=== PATIENT | male | born 1965 | race Caucasian/White ===

== ENCOUNTER 2017-11-12 19:38 | Inpatient (IN) | payer OTHER ==
[2017-11-12] VITALS (7 sets, daily range): BP systolic 178; BP diastolic 81; PULSE 48–53; RESP 26; TEMP 97.7; O2SAT 99–100
[~2017-11-12] VITALS: Ht 170.2 cm; Wt 97.2 kg
[2017-11-12] MEDS ORDERED: PROPOFOL 1000 MG/100 ML INJ 100 ML ONE (19:46)
[2017-11-12] MEDS ORDERED: ceFAZolin 2 GM PREMIX 50 ML ONE (19:46)
[2017-11-12] MEDS ORDERED: DIPHTH/TETANUS/ACEL PERTUSSIS (BOOSTER) 0.5 ML VIAL/PFS IM ONE (19:47)
[2017-11-12 20:07] LABS: AUTOMATED NEUTROPHIL # 4.3 TH/MM3 (1.8-7.7); BASOPHIL # 0.1 TH/MM3 (0-0.2); BASOPHIL % 0.8 % (0.0-2.0); EOSINOPHIL # 0.3 TH/MM3 (0-0.4); EOSINOPHIL % 2.6 % (0.0-4.0); HEMATOCRIT 44.3 % (39.0-51.0); HEMOGLOBIN 15.3 GM/DL (13.0-17.0); LYMPH % 43.7 % (9.0-44.0); LYMPHOCYTE # 4.3 TH/MM3 (1.0-4.8); MEAN CELL VOLUME 91.6 FL (80.0-100.0); MEAN CORPUSCULAR HEMOGLOBIN 31.7 PG (27.0-34.0); MEAN CORPUSCULAR HGB CONC 34.6 % (32.0-36.0); MEAN PLATELET VOLUME 7.3 FL (7.0-11.0); MONO % 9.2 % (0.0-8.0); MONOCYTE # 0.9 TH/MM3 (0-0.9); NEUT % 43.7 % (16.0-70.0); PLATELET COUNT 242 TH/MM3 (150-450); RED BLOOD COUNT 4.84 MIL/MM3 (4.50-5.90); RED CELL DISTRIBUTION WIDTH 12.9 % (11.6-17.2); WHITE BLOOD COUNT 9.8 TH/MM3 (4.0-11.0)
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
[2017-11-12 20:15] LABS: PROTHROMBIN TIME - PATIENT 10.5 SEC (9.8-11.6)
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
[2017-11-12] MEDS ORDERED: MISCELLANEOUS NURSING INFORMATION XX SCH (20:30)
[2017-11-12] MEDS ORDERED: SENNOSIDES 8.6 MG TAB PO PRN (20:30)
[2017-11-12] MEDS ORDERED: MAGNESIUM HYDROXIDE SUSP 30 ML CUP PO PRN (20:30)
[2017-11-12] MEDS ORDERED: LACTULOSE SYRUP 20 GM/30 ML CUP PO PRN (20:30)
[2017-11-12] MEDS ORDERED: CHLORHEXIDINE GLUCONATE 2 % 1 PACK (2 CLOTHS) TOP PRN (20:30)
[2017-11-12] MEDS ORDERED: PROPOFOL 1000 MG/100 ML INJ 100 ML IV PRN (20:30)
[2017-11-12] MEDS ORDERED: fentaNYL DRIP 250 ML IV PRN (20:30)
[2017-11-12] MEDS ORDERED: BISACODYL 10 MG SUPP RECTAL PRN (20:30)
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
[2017-11-12] MEDS ORDERED: IOHEXOL 350 MG/ML 10 ML VIAL (for RAD DIAG) IVCONTRAST ONE (20:46)
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
[2017-11-12] MEDS ORDERED: POTASSIUM CHLOR 40 MEQ PREMIX 100 ML IV PRN (21:00)
[2017-11-12] MEDS ORDERED: POTASSIUM PHOSPHATE INJ 30 MMOL in SODIUM CHLOR 0.9% 250 ML INJ 250 ML IV PRN (21:00)
[2017-11-12] MEDS ORDERED: POTASSIUM CHLOR 20 MEQ PREMIX 100 ML IV PRN ×2 (21:00)
[2017-11-12] MEDS ORDERED: MAGNESIUM SULFATE INJ 4 GM in SODIUM CHLORIDE 0.9% INJ 92 ML IV PRN (21:00)
[2017-11-12] MEDS ORDERED: POTASSIUM PHOSPHATE MONOBASIC 500 MG TAB PO PRN (21:00)
[2017-11-12] MEDS ORDERED: MAGNESIUM SULFATE INJ 2 GM in SODIUM CHLORIDE 0.9% INJ 96 ML IV PRN (21:00)
[2017-11-12] MEDS ORDERED: POTASSIUM PHOSPHATE MONOBASIC 500 MG TAB PO/TUBE PRN (21:00)
[2017-11-12] MEDS ORDERED: MAGNESIUM OXIDE 400 MG TAB PO PRN (21:00)
[2017-11-12] MEDS ORDERED: levETIRAcetam INJ 500 MG in SODIUM CHLORIDE 0.9% INJ 100 ML IV SCH (21:00)
[2017-11-12] MEDS ORDERED: SODIUM PHOSPHATE INJ 30 MMOL in SODIUM CHLOR 0.9% 250 ML INJ 240 ML IV PRN (21:00)
[2017-11-12] MEDS ORDERED: ETOMIDATE 40 MG/20 ML VIAL ONE (21:05)
[2017-11-12] MEDS ORDERED: ROCURONIUM INJ 50 MG/5 ML VIAL ONE (21:08)
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
[2017-11-12] MEDS ORDERED: MANNITOL INJ 500 ML IV ONE (21:30)
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
[2017-11-12 21:46] LABS: MAGNESIUM 2.5 MG/DL (1.5-2.5); PHOSPHORUS 2.9 MG/DL (2.5-4.9)
[2017-11-12] MEDS: PROPOFOL 1000 MG/100 ML IV PRN (21:59)
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
[2017-11-12] MEDS: fentaNYL DRIP 250 ML IV PRN (22:00)
[2017-11-12] MEDS: SODIUM CHLOR 0.9% 1000 ML INJ 1,000 ML IV SCH (22:00)
--- NOTE | 2017-11-12 22:01 | RADRPT ---
EXAM DATE/TIME: 11/12/2017 21:41 [facility] COMPARISON: CT BRAIN W/O CONTRAST, November 12, 2017, 20:03. CHEST SINGLE AP, November 12, 2017, 19:52. HAND LEFT COM PLETE ([id number]), November 12, 2017, 21:04. INDICATIONS : Post central line placement. MEDICAL HISTORY : Unobtainable. SURGICAL HISTORY : Unobtainable. ENCOUNTER: Subsequent ACUITY: 1 day PAIN SCORE: Non-responsive. LOCATION: Bilateral chest FINDINGS: The endotracheal tube and right subclavian central line are in good position. There is no pneumothora x identified. There is an area of consolidation at the left lung base. The lungs are otherwise clear. The visualized bony structures are grossly intact. CONCLUSION: 1. No pneumothorax identified following central line placement. 2. Endotracheal tube in satisfactory position. 3. Small area of consolidation at the left lung base. Radames Lopez MD on November 12, 2017 at 21:57 Board Certified Radiologist. This report was verified electronically.
[2017-11-12] MEDS: levETIRAcetam INJ 500 MG in SODIUM CHLORIDE 0.9% INJ 100 ML IV SCH (23:04)
[2017-11-12] MEDS: FAMOTIDINE 20 MG TAB PO SCH (23:11)
[2017-11-12] MEDS: DOCUSATE SODIUM 50 MG/SENNA 8.6 MG TAB PO SCH (23:11)
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
[2017-11-12] MEDS: 3% SALINE INJ 500 ML IV SCH (23:33)
--- NOTE | 2017-11-12 23:39 | PD.PROCEDR ---
Procedure Note Procedure Centerline placement A time-out was completed verifying correct patient, procedure, site, positioning , and special equipment if applicable. The patient was placed in a dependent position appropriate for central line placement based on the vein to be cannulated. The patients right shoulder was prepped and draped in sterile fashion. 1% Lidocaine was used to anesthetize the surrounding skin area. A triple lumen 9-Bolivian Cordis catheter was introduced into the the right subclavian vein using the Seldinger technique. The catheter was threaded smoothly over the guide wire and appropriate blood return was obtained. Each lumen of the catheter was evacuated of air and flushed with sterile saline. The catheter was then sutured in place to the skin and a sterile dressing applied. Perfusion to the extremity distal to the point of catheter insertion was checked and found to be adequate. Estimated Blood Loss: 1ml The patient tolerated the procedure well and there were no complications. Keny Polanco MD Nov 12, 2017 11:39 pm
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
[2017-11-13] VITALS (16 sets, daily range): BP systolic 94–124; BP diastolic 52–64; PULSE 54–68; RESP 24; TEMP 98.5–101.1; O2SAT 100
[2017-11-13 00:20] LABS: BILIRUBIN, URINE NEG (NEG); BLOOD, URINE SMALL (NEG); GLUCOSE,URINE NEG (NEG); KETONE, URINE TRACE mg/dL (NEG); NITRITE,URINE NEG (NEG); PH, URINE 7.5 (5.0-8.5); URINE COLOR LIGHT-YELLOW (YELLW/STRAW); URINE LEUKOCYTE ESTERASE NEG (NEG)
[2017-11-13] MEDS: PROPOFOL 1000 MG/100 ML IV PRN ×5 (00:44→23:16)
[2017-11-13] MEDS: SODIUM CHLOR 0.9% 1000 ML INJ 1,000 ML IV SCH ×4 (00:44→21:25)
[2017-11-13] MEDS: CHLORHEXIDINE GLUCONATE 2 % 1 PACK (2 CLOTHS) TOP SCH (04:00)
[2017-11-13 05:27] LABS: BASOPHIL % 0.2 % (0.0-2.0); EOSINOPHIL % 0.1 % (0.0-4.0); HEMATOCRIT 37.3 % (39.0-51.0); HEMOGLOBIN 12.8 GM/DL (13.0-17.0); LYMPH % 10.6 % (9.0-44.0); LYMPHOCYTE # 1.1 TH/MM3 (1.0-4.8); MEAN CELL VOLUME 93.1 FL (80.0-100.0); MEAN CORPUSCULAR HEMOGLOBIN 32.1 PG (27.0-34.0); MEAN CORPUSCULAR HGB CONC 34.5 % (32.0-36.0); MEAN PLATELET VOLUME 7.1 FL (7.0-11.0); MONO % 8.3 % (0.0-8.0); MONOCYTE # 0.8 TH/MM3 (0-0.9); NEUT % 80.8 % (16.0-70.0); PLATELET COUNT 186 TH/MM3 (150-450); RED CELL DISTRIBUTION WIDTH 13.1 % (11.6-17.2); WHITE BLOOD COUNT 9.9 TH/MM3 (4.0-11.0)
[2017-11-13 05:34] LABS: INTERNATIONAL NORMALIZED RATIO 1.1 RATIO; PROTHROMBIN TIME - PATIENT 10.9 SEC (9.8-11.6)
[2017-11-13 05:43] LABS: BICARBONATE 28.3 MEQ/L (21.0-32.0); CREATININE 1.08 MG/DL (0.60-1.30); MAGNESIUM 2.3 MG/DL (1.5-2.5)
[2017-11-13] MEDS: CHLORHEXIDINE 0.12% (ORAL KIT) 15 ML CUP MT SCH ×2 (09:38→21:21)
[2017-11-13] MEDS: levETIRAcetam INJ 500 MG in SODIUM CHLORIDE 0.9% INJ 100 ML IV SCH ×2 (09:38→21:18)
[2017-11-13] MEDS: FAMOTIDINE 20 MG TAB PO SCH ×2 (09:39→21:16)
[2017-11-13] MEDS: DOCUSATE SODIUM 50 MG/SENNA 8.6 MG TAB PO SCH ×2 (09:39→21:16)
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
[2017-11-13] MEDS ORDERED: NOREPINEPHRINE 4 MG/D5W 250 ML IV PRN (14:15)
[2017-11-13] MEDS: 3% SALINE INJ 500 ML IV SCH (14:51)
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
[2017-11-14] VITALS (20 sets, daily range): BP systolic 107–133; BP diastolic 50–73; PULSE 50–82; RESP 20–24; TEMP 98.4–100.4; O2SAT 98–100
[2017-11-14] MEDS: PROPOFOL 1000 MG/100 ML IV PRN ×6 (02:42→20:18)
[2017-11-14] MEDS: CHLORHEXIDINE GLUCONATE 2 % 1 PACK (2 CLOTHS) TOP SCH (04:00)
[2017-11-14] MEDS: SODIUM CHLOR 0.9% 1000 ML INJ 1,000 ML IV SCH ×3 (04:26→18:18)
--- NOTE | 2017-11-14 04:52 | RADRPT ---
EXAM DATE/TIME: 11/14/2017 02:56 [facility] COMPARISON: CHEST SINGLE AP, November 12, 2017, 21:41. INDICATIONS : Short of breath. MEDICAL HISTORY : None. SURGICAL HISTORY : None. ENCOUNTER: Subsequent ACUITY: 2 days PAIN SCORE: 0/10 LOCATION: Bilateral chest FINDINGS: Patient rotation towards the right. ET tube in good position. Gastric and subclavian catheter is st able. Patchy infiltrates in the karen-and infrahilar regions bilaterally stable in appearance. Both hemidiaphragms are well delineated. CONCLUSION: Lines and tubes in good position. Stable bilateral central infiltrates. Adal Rodríguez MD on November 14, 2017 at 4:50 Board Certified Radiologist. This report was verified electronically.
--- NOTE | 2017-11-14 05:13 | RADRPT ---
EXAM DATE/TIME: 11/14/2017 04:56 [facility] COMPARISON: CT BRAIN W/O CONTRAST, November 12, 2017, 20:03. INDICATIONS : Follow up trauma. RADIATION DOSE: 63.90 CTDIvol (mGy) MEDICAL HISTORY : Non-responsive. SURGICAL HISTORY : Non-responsive. ENCOUNTER: Subsequent ACUITY: 1 day PAIN SCALE: Non-responsive LOCATION: cranial TECHNIQUE: Multiple contiguous axial images were obtained of the head. Using automated exposure control and adj ustment of the mA and/or kV according to patient size, radiation dose was kept as low as reasonably a chievable to obtain optimal diagnostic quality images. DICOM format image data is available electro nically for review and comparison. FINDINGS: The examination is abnormal demonstrating an enlarging extra-axial hematoma in the left middle crania l fossa having a crescentic inner margin and measuring 2.7 cm in width (hematoma measured 9 mm on the prior CT). The length is also increased, now measuring 6.5 cm (previously measured 1.7 cm) Interva l development of midline shift measuring 5 mm to the right. There is no intraventricular blood layer ing in the occipital horns. Subarachnoid hemorrhage is seen in the high convexity parietal regions b ilaterally. Cranial monitoring probe in the left right convexity frontal region. Interval resolution of the subarachnoid hemorrhage about the brainstem and cerebellum. The karen-pont ine cisterns no contain CSF density and no blood products within the 4th ventricle. Stable appearance to the left maxillary, left zygoma and right maxillary fractures with persistent co mplete opacification of bilateral ethmoid and left maxillary sinus and air-fluid level in the right m axillary sinus. CONCLUSION: 1. Significant increase in the size of the extra-axial hematoma in the left middle cranial fossa, now measuring 2.7 x 6.5 cm with interval development of 5 mm midline shift towards the right, bilateral- convexity subarachnoid hemorrhage, and bilateral intraventricular blood. 2. Resolved hemorrhage about the brainstem and cerebellum and in the 4th ventricle. Adal Rodríguez MD on November 14, 2017 at 5:02 Board Certified Radiologist. This report was verified electronically.
[2017-11-14 06:13] LABS: AUTOMATED NEUTROPHIL # 8.9 TH/MM3 (1.8-7.7); BASOPHIL % 0.3 % (0.0-2.0); EOSINOPHIL % 0.2 % (0.0-4.0); HEMATOCRIT 29.4 % (39.0-51.0); HEMOGLOBIN 10.3 GM/DL (13.0-17.0); LYMPH % 11.6 % (9.0-44.0); LYMPHOCYTE # 1.3 TH/MM3 (1.0-4.8); MEAN CELL VOLUME 92.1 FL (80.0-100.0); MEAN CORPUSCULAR HEMOGLOBIN 32.4 PG (27.0-34.0); MEAN CORPUSCULAR HGB CONC 35.1 % (32.0-36.0); MEAN PLATELET VOLUME 7.4 FL (7.0-11.0); MONO % 6.9 % (0.0-8.0); MONOCYTE # 0.8 TH/MM3 (0-0.9); PLATELET COUNT 145 TH/MM3 (150-450); RED BLOOD COUNT 3.19 MIL/MM3 (4.50-5.90)
[2017-11-14 06:41] LABS: ALBUMIN 2.7 GM/DL (3.4-5.0); BICARBONATE 24.1 MEQ/L (21.0-32.0); CALCIUM 7.4 MG/DL (8.5-10.1); CALCIUM-PROTEIN CORRECTED 8.3 MG/DL (8.5-10.1); CREATININE 0.85 MG/DL (0.60-1.30); TOTAL BILIRUBIN ADULT 0.4 MG/DL (0.2-1.0); TOTAL PROTEIN 5.4 GM/DL (6.4-8.2)
[2017-11-14] MEDS: 3% SALINE INJ 500 ML IV SCH (07:08)
[2017-11-14] MEDS: fentaNYL DRIP 250 ML IV PRN (10:23)
[2017-11-14] MEDS: levETIRAcetam INJ 500 MG in SODIUM CHLORIDE 0.9% INJ 100 ML IV SCH ×2 (10:23→20:17)
[2017-11-14] MEDS: DOCUSATE SODIUM 50 MG/SENNA 8.6 MG TAB PO SCH ×2 (10:24→20:45)
[2017-11-14] MEDS: CHLORHEXIDINE 0.12% (ORAL KIT) 15 ML CUP MT SCH ×2 (10:26→20:18)
[2017-11-14] MEDS: POTASSIUM CHLORIDE 20 MEQ PWD PACKET PO PRN (10:26)
[2017-11-14] MEDS: FAMOTIDINE 20 MG TAB PO SCH ×2 (10:26→20:17)
[2017-11-14] MEDS: POTASSIUM CHLOR 40 MEQ PREMIX 100 ML IV PRN (10:26)
[2017-11-14] MEDS ORDERED: SODIUM CHLOR 0.9% 1000 ML INJ 1,000 ML IV ONE (10:30)
[2017-11-14] MEDS ORDERED: ROCURONIUM INJ 50 MG/5 ML SYRINGE IV PUSH ONE (12:00)
[2017-11-14] MEDS ORDERED: PROPOFOL 200 MG/20 ML AMP IV ONE (12:00)
[2017-11-14] MEDS ORDERED: GELFOAM SIZE 100 ONE (13:24)
[2017-11-14] MEDS ORDERED: LIDOCAINE 1%/EPINEPHrine 1:100,000 SOLN 30 ML VIAL ONE (13:24)
[2017-11-14] MEDS ORDERED: GENTAMICIN SULFATE 80 MG/2 ML VIAL ONE (13:24)
[2017-11-14] MEDS ORDERED: THROMBIN (TOPICAL) 5,000 UNIT VIAL ONE (13:24)
[2017-11-14] MEDS ORDERED: ceFAZolin 2 GM PREMIX 50 ML ONE (13:24)
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
[2017-11-14] MEDS ORDERED: FUROSEMIDE 20 MG/2 ML VIAL ONE (13:55)
[2017-11-14] MEDS ORDERED: MANNITOL INJ 100 ML ONE (13:57)
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
--- NOTE | 2017-11-14 21:14 | EKG ---
Date Performed: 11/14/2017 Time Performed: 12:52:30 PTAGE: 52 years EKG: Sinus bradycardia. Prolonged QT interval Inferior and anterior T wave changes are nonspecif ic Borderline ECG NO PREVIOUS TRACING DOCTOR: Annette Landaverde Interpretating Date/Time 11/14/2017 21:13:26
[2017-11-15] VITALS (17 sets, daily range): BP systolic 96–122; BP diastolic 50–80; PULSE 43–54; RESP 18–20; TEMP 97.5–100; O2SAT 98–100
[2017-11-15] MEDS: PROPOFOL 1000 MG/100 ML IV PRN ×5 (01:15→19:50)
[2017-11-15] MEDS: 3% SALINE INJ 500 ML IV SCH ×2 (02:15→17:43)
[2017-11-15] MEDS: SODIUM CHLOR 0.9% 1000 ML INJ 1,000 ML IV SCH ×2 (02:16→08:02)
[2017-11-15] MEDS: CHLORHEXIDINE GLUCONATE 2 % 1 PACK (2 CLOTHS) TOP SCH (04:00)
[2017-11-15 04:35] LABS: BASOPHIL % 0.6 % (0.0-2.0); EOSINOPHIL # 0.2 TH/MM3 (0-0.4); EOSINOPHIL % 2.9 % (0.0-4.0); HEMATOCRIT 26.9 % (39.0-51.0); HEMOGLOBIN 9.4 GM/DL (13.0-17.0); LYMPH % 24.7 % (9.0-44.0); LYMPHOCYTE # 1.9 TH/MM3 (1.0-4.8); MEAN CORPUSCULAR HEMOGLOBIN 32.4 PG (27.0-34.0); MEAN CORPUSCULAR HGB CONC 34.9 % (32.0-36.0); MEAN PLATELET VOLUME 7.4 FL (7.0-11.0); MONO % 6.8 % (0.0-8.0); MONOCYTE # 0.5 TH/MM3 (0-0.9); PLATELET COUNT 117 TH/MM3 (150-450); RED BLOOD COUNT 2.89 MIL/MM3 (4.50-5.90); RED CELL DISTRIBUTION WIDTH 13.4 % (11.6-17.2); WHITE BLOOD COUNT 7.7 TH/MM3 (4.0-11.0)
[2017-11-15 05:08] LABS: ALBUMIN 2.4 GM/DL (3.4-5.0); BICARBONATE 20.6 MEQ/L (21.0-32.0); CALCIUM 7.4 MG/DL (8.5-10.1); CALCIUM-PROTEIN CORRECTED 8.5 MG/DL (8.5-10.1); CREATININE 0.7 MG/DL (0.60-1.30); TOTAL BILIRUBIN ADULT 0.3 MG/DL (0.2-1.0); TOTAL PROTEIN 5.1 GM/DL (6.4-8.2)
[2017-11-15] MEDS: fentaNYL DRIP 250 ML IV PRN (05:54)
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
[2017-11-15] MEDS: CHLORHEXIDINE 0.12% (ORAL KIT) 15 ML CUP MT SCH ×2 (08:00→19:51)
[2017-11-15] MEDS: FAMOTIDINE 20 MG TAB PO SCH ×2 (08:02→19:51)
[2017-11-15] MEDS: levETIRAcetam INJ 500 MG in SODIUM CHLORIDE 0.9% INJ 100 ML IV SCH ×2 (08:02→19:51)
[2017-11-15] MEDS: DOCUSATE SODIUM 50 MG/SENNA 8.6 MG TAB PO SCH ×2 (08:02→19:51)
[2017-11-15] MEDS: POTASSIUM CHLORIDE 20 MEQ PWD PACKET PO PRN (08:04)
[2017-11-15] MEDS ORDERED: FUROSEMIDE 40 MG/4 ML VIAL IV PUSH ONE (10:30)
[2017-11-15] MEDS ORDERED: POTASSIUM BICARBONATE 25 MEQ EFFERVESCENT TAB PO ONE (10:30)
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
--- NOTE | 2017-11-15 14:43 | EKG ---
Date Performed: 11/15/2017 Time Performed: 10:44:22 PTAGE: 52 years EKG: Sinus bradycardia. Inferior and ant/septal T wave changes are nonspecific Borderline ECG NO PREVIOUS TRACING DOCTOR: Bennie Sigala Interpretating Date/Time 11/15/2017 14:43:01
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
[2017-11-15] MEDS: NOREPINEPHRINE INJ 4 MG in SODIUM CHLOR 0.9% 250 ML INJ 250 ML IV PRN ×2 (17:13→19:50)
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
[2017-11-15] MEDS: LACTULOSE SYRUP 20 GM/30 ML CUP PO SCH (23:35)
[2017-11-16] VITALS (18 sets, daily range): BP systolic 93–131; BP diastolic 47–88; PULSE 18–97; RESP 18; TEMP 99.3–100; O2SAT 95–99
[2017-11-16] MEDS: fentaNYL DRIP 250 ML IV PRN ×2 (00:30→08:41)
[2017-11-16] MEDS: PROPOFOL 1000 MG/100 ML IV PRN ×4 (00:30→20:15)
[2017-11-16] MEDS: CHLORHEXIDINE GLUCONATE 2 % 1 PACK (2 CLOTHS) TOP SCH (02:52)
[2017-11-16] MEDS: NOREPINEPHRINE INJ 4 MG in SODIUM CHLOR 0.9% 250 ML INJ 250 ML IV PRN (05:12)
--- NOTE | 2017-11-16 05:55 | RADRPT ---
EXAM DATE/TIME: 11/16/2017 04:33 [place] COMPARISON: CHEST SINGLE AP, November 15, 2017, 5:15. INDICATIONS : Shortness of breath. MEDICAL HISTORY : Non-responsive. SURGICAL HISTORY : Non-responsive. ENCOUNTER: Subsequent ACUITY: 4 - 6 days PAIN SCORE: Non-responsive. LOCATION: Bilateral chest FINDINGS: ET tube tip 1.4 cm above the taco. There is persistent consolidation in the medial left lower lung with air bronchograms. Patchy infiltrates in the right infrahilar region are also stable. Both hem idiaphragms are well delineated. CONCLUSION: 1. ET tube tip is 1.4 cm above the taco and needs to be withdrawn 1 cm. 2. Bilateral lower lung subsegmental consolidation. Adal Rodríguez MD on November 16, 2017 at 5:52 Board Certified Radiologist. This report was verified electronically.
[2017-11-16 06:04] LABS: AUTOMATED NEUTROPHIL # 5.7 TH/MM3 (1.8-7.7); BASOPHIL % 0.4 % (0.0-2.0); EOSINOPHIL # 0.4 TH/MM3 (0-0.4); EOSINOPHIL % 4.8 % (0.0-4.0); HEMATOCRIT 27.7 % (39.0-51.0); LYMPH % 20.8 % (9.0-44.0); LYMPHOCYTE # 1.7 TH/MM3 (1.0-4.8); MEAN CELL VOLUME 91.6 FL (80.0-100.0); MEAN PLATELET VOLUME 7.5 FL (7.0-11.0); MONO % 6.4 % (0.0-8.0); MONOCYTE # 0.5 TH/MM3 (0-0.9); NEUT % 67.6 % (16.0-70.0); PLATELET COUNT 169 TH/MM3 (150-450); RED BLOOD COUNT 3.02 MIL/MM3 (4.50-5.90); RED CELL DISTRIBUTION WIDTH 13.2 % (11.6-17.2); WHITE BLOOD COUNT 8.4 TH/MM3 (4.0-11.0)
[2017-11-16 06:19] LABS: ALBUMIN 2.4 GM/DL (3.4-5.0); AST (GOT) 17 U/L (15-37); BICARBONATE 23.8 MEQ/L (21.0-32.0); BLOOD UREA NITROGEN 9 MG/DL (7-18); CALCIUM 7.9 MG/DL (8.5-10.1); CHLORIDE 118 MEQ/L (98-107); CREATININE 0.76 MG/DL (0.60-1.30); GLOMERULAR FILTRATION RATE 107 ML/MIN (>89); GLUCOSE,RANDOM 140 MG/DL (74-106); SODIUM (NA) 149 MEQ/L (136-145)
[2017-11-16 06:20] LABS: ALT (GPT) 26 U/L (12-78)
[2017-11-16 06:22] LABS: ALKALINE PHOSPHATASE 51 U/L (45-117); TOTAL BILIRUBIN ADULT 0.3 MG/DL (0.2-1.0); TOTAL PROTEIN 5.6 GM/DL (6.4-8.2)
[2017-11-16] MEDS: CHLORHEXIDINE 0.12% (ORAL KIT) 15 ML CUP MT SCH ×2 (08:00→20:16)
[2017-11-16] MEDS ORDERED: RESP: ALBUTEROL 2.5 MG/IPRATROPIUM 0.5 MG NEB (PRN) NEB (08:00)
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
[2017-11-16] MEDS: levETIRAcetam INJ 500 MG in SODIUM CHLORIDE 0.9% INJ 100 ML IV SCH ×2 (08:37→20:15)
[2017-11-16] MEDS: LACTULOSE SYRUP 20 GM/30 ML CUP PO SCH (08:37)
[2017-11-16] MEDS: MAGNESIUM HYDROXIDE SUSP 30 ML CUP PO SCH ×2 (08:37→20:15)
[2017-11-16] MEDS: 3% SALINE INJ 500 ML IV SCH ×2 (08:38→11:15)
[2017-11-16] MEDS: DOCUSATE SODIUM 50 MG/SENNA 8.6 MG TAB PO SCH ×2 (08:39→20:16)
[2017-11-16] MEDS: FAMOTIDINE 20 MG TAB PO SCH ×2 (08:39→20:15)
[2017-11-16] MEDS: POTASSIUM CHLOR 40 MEQ PREMIX 100 ML IV PRN ×2 (09:09→11:43)
[2017-11-16] MEDS: RESP: ALBUTEROL 2.5 MG/IPRATROPIUM 0.5 MG NEB (SCH) NEB ×3 (09:23→20:35)
--- NOTE | 2017-11-16 10:04 | HHI.NSPN ---
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 and breathing treatments with nebulizers. Daily PT and OT Renal. Continue to monitor closely urine output, BUN and creatinine Endocrine. Continue to Monitor serial Acu checks and SSI as needed in detail ID continue to monitor for signs of infection Continue Protonix for stress ulcer prophylaxis Continue Bob hose and SCD's for DVT prophylaxis Further recommendations will be provided depending on the patient's clinical evaluation and follow up studies. The exam, history, and the medical decision-making described in the above note were completed with the assistance of the mid-level provider. I reviewed and agree with the findings presented. I attest that I had a [id number] encounter with the patient on the same day, and personally performed and documented my assessment and findings in the medical record. (Boyd Gill MD) Noe Macdonald Nov 16, 2017 10:04 Boyd Gill MD Nov 19, 2017 14:32
[2017-11-16] MEDS: ARTIFICIAL TEARS OPTH OINT 3.5 APPLIC/3.5 GM TUBO EACH EYE SCH ×2 (12:48→20:16)
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
[2017-11-17] VITALS (19 sets, daily range): BP systolic 101–143; BP diastolic 8–68; PULSE 63–94; RESP 11–18; TEMP 99.7–100.4; O2SAT 93–100
[2017-11-17] MEDS: fentaNYL DRIP 250 ML IV PRN ×2 (02:23→18:28)
[2017-11-17] MEDS: RESP: ALBUTEROL 2.5 MG/IPRATROPIUM 0.5 MG NEB (SCH) NEB ×4 (03:19→21:17)
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
[2017-11-17] MEDS: 3% SALINE INJ 500 ML IV SCH (03:27)
[2017-11-17] MEDS: CHLORHEXIDINE GLUCONATE 2 % 1 PACK (2 CLOTHS) TOP SCH (04:00)
[2017-11-17] MEDS: PROPOFOL 1000 MG/100 ML IV PRN ×2 (05:17→13:51)
[2017-11-17 07:02] LABS: AUTOMATED NEUTROPHIL # 5.7 TH/MM3 (1.8-7.7); BASOPHIL % 0.1 % (0.0-2.0); EOSINOPHIL # 0.5 TH/MM3 (0-0.4); EOSINOPHIL % 6.4 % (0.0-4.0); HEMOGLOBIN 10.4 GM/DL (13.0-17.0); LYMPHOCYTE # 1.2 TH/MM3 (1.0-4.8); MEAN CELL VOLUME 91.3 FL (80.0-100.0); MEAN CORPUSCULAR HEMOGLOBIN 31.8 PG (27.0-34.0); MEAN CORPUSCULAR HGB CONC 34.8 % (32.0-36.0); MEAN PLATELET VOLUME 7.2 FL (7.0-11.0); MONO % 8.2 % (0.0-8.0); MONOCYTE # 0.7 TH/MM3 (0-0.9); NEUT % 70.3 % (16.0-70.0); PLATELET COUNT 225 TH/MM3 (150-450); RED BLOOD COUNT 3.29 MIL/MM3 (4.50-5.90); WHITE BLOOD COUNT 8.1 TH/MM3 (4.0-11.0)
[2017-11-17 07:12] LABS: ALBUMIN 2.4 GM/DL (3.4-5.0); AST (GOT) 11 U/L (15-37); BICARBONATE 24.1 MEQ/L (21.0-32.0); BLOOD UREA NITROGEN 10 MG/DL (7-18); CALCIUM 8.2 MG/DL (8.5-10.1); CHLORIDE 115 MEQ/L (98-107); CREATININE 0.77 MG/DL (0.60-1.30); GLOMERULAR FILTRATION RATE 105 ML/MIN (>89); GLUCOSE,RANDOM 127 MG/DL (74-106); SODIUM (NA) 147 MEQ/L (136-145)
[2017-11-17 07:13] LABS: ALT (GPT) 26 U/L (12-78)
[2017-11-17 07:15] LABS: ALKALINE PHOSPHATASE 60 U/L (45-117); TOTAL BILIRUBIN ADULT 0.4 MG/DL (0.2-1.0); TOTAL PROTEIN 5.9 GM/DL (6.4-8.2)
[2017-11-17] MEDS: CHLORHEXIDINE 0.12% (ORAL KIT) 15 ML CUP MT SCH ×2 (08:00→20:39)
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
[2017-11-17] MEDS: levETIRAcetam INJ 500 MG in SODIUM CHLORIDE 0.9% INJ 100 ML IV SCH ×2 (09:00→20:39)
[2017-11-17] MEDS: ARTIFICIAL TEARS OPTH OINT 3.5 APPLIC/3.5 GM TUBO EACH EYE SCH ×2 (09:00→20:39)
[2017-11-17] MEDS: MAGNESIUM HYDROXIDE SUSP 30 ML CUP PO SCH ×2 (09:39→20:39)
[2017-11-17] MEDS: LACTULOSE SYRUP 20 GM/30 ML CUP PO SCH (09:39)
[2017-11-17] MEDS: FAMOTIDINE 20 MG TAB PO SCH ×2 (09:39→20:38)
[2017-11-17] MEDS: DOCUSATE SODIUM 50 MG/SENNA 8.6 MG TAB PO SCH ×2 (09:42→20:39)
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
[2017-11-17] MEDS ORDERED: LIDOCAINE 1%/EPINEPHrine 1:100,000 SOLN 30 ML VIAL INFIL ONE (10:15)
[2017-11-17] MEDS: oxyCODONE HCL ORAL CONC 5 MG/0.25 ML SYRINGE PO SCH ×4 (11:57→23:57)
[2017-11-17] MEDS: SODIUM CHLORIDE 1 GRAM TAB PO SCH ×2 (11:57→20:38)
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
[2017-11-17] MEDS: ACETAMINOPHEN 650 MG/20.3 ML UDC PO PRN (23:57)
[2017-11-18] VITALS (20 sets, daily range): BP systolic 110–132; BP diastolic 54–70; PULSE 58–96; RESP 14–17; TEMP 100.2–101.3; O2SAT 96–100
[2017-11-18] MEDS: oxyCODONE HCL ORAL CONC 5 MG/0.25 ML SYRINGE PO SCH ×6 (03:00→23:00)
[2017-11-18] MEDS: CHLORHEXIDINE GLUCONATE 2 % 1 PACK (2 CLOTHS) TOP SCH (04:00)
[2017-11-18] MEDS: RESP: ALBUTEROL 2.5 MG/IPRATROPIUM 0.5 MG NEB (SCH) NEB ×4 (04:06→20:06)
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
[2017-11-18 05:37] LABS: AUTOMATED NEUTROPHIL # 8.6 TH/MM3 (1.8-7.7); BASOPHIL % 0.2 % (0.0-2.0); EOSINOPHIL # 0.5 TH/MM3 (0-0.4); EOSINOPHIL % 4.8 % (0.0-4.0); HEMATOCRIT 29.8 % (39.0-51.0); HEMOGLOBIN 10.3 GM/DL (13.0-17.0); LYMPH % 7.4 % (9.0-44.0); LYMPHOCYTE # 0.8 TH/MM3 (1.0-4.8); MEAN CELL VOLUME 92.2 FL (80.0-100.0); MEAN CORPUSCULAR HEMOGLOBIN 31.9 PG (27.0-34.0); MEAN CORPUSCULAR HGB CONC 34.6 % (32.0-36.0); MEAN PLATELET VOLUME 6.9 FL (7.0-11.0); MONO % 9.5 % (0.0-8.0); MONOCYTE # 1.1 TH/MM3 (0-0.9); NEUT % 78.1 % (16.0-70.0); PLATELET COUNT 244 TH/MM3 (150-450); RED BLOOD COUNT 3.23 MIL/MM3 (4.50-5.90); RED CELL DISTRIBUTION WIDTH 13.2 % (11.6-17.2); WHITE BLOOD COUNT 11.1 TH/MM3 (4.0-11.0)
[2017-11-18] MEDS: PROPOFOL 1000 MG/100 ML IV PRN (05:55)
[2017-11-18 06:07] LABS: ALBUMIN 2.4 GM/DL (3.4-5.0); ALKALINE PHOSPHATASE 63 U/L (45-117); ALT (GPT) 35 U/L (12-78); AST (GOT) 22 U/L (15-37); BICARBONATE 26.2 MEQ/L (21.0-32.0); BLOOD UREA NITROGEN 21 MG/DL (7-18); CALCIUM 8.3 MG/DL (8.5-10.1); CHLORIDE 112 MEQ/L (98-107); GLOMERULAR FILTRATION RATE 88 ML/MIN (>89); GLUCOSE,RANDOM 145 MG/DL (74-106); SODIUM (NA) 145 MEQ/L (136-145); TOTAL BILIRUBIN ADULT 0.4 MG/DL (0.2-1.0); TOTAL PROTEIN 6.1 GM/DL (6.4-8.2)
[2017-11-18] MEDS: FAMOTIDINE 20 MG TAB PO SCH ×2 (08:19→19:56)
[2017-11-18] MEDS: LACTULOSE SYRUP 20 GM/30 ML CUP PO SCH (08:19)
[2017-11-18] MEDS: SODIUM CHLORIDE 1 GRAM TAB PO SCH ×2 (08:19→19:56)
[2017-11-18] MEDS: DOCUSATE SODIUM 50 MG/SENNA 8.6 MG TAB PO SCH ×2 (08:19→19:55)
[2017-11-18] MEDS: MAGNESIUM HYDROXIDE SUSP 30 ML CUP PO SCH ×2 (08:19→19:56)
[2017-11-18] MEDS: levETIRAcetam INJ 500 MG in SODIUM CHLORIDE 0.9% INJ 100 ML IV SCH ×2 (08:19→19:55)
[2017-11-18] MEDS: CHLORHEXIDINE 0.12% (ORAL KIT) 15 ML CUP MT SCH ×2 (08:20→19:56)
[2017-11-18] MEDS: ARTIFICIAL TEARS OPTH OINT 3.5 APPLIC/3.5 GM TUBO EACH EYE SCH ×2 (08:21→19:56)
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
[2017-11-18] MEDS: fentaNYL 50 MCG/HR PATCH T-DERMAL SCH (11:37)
[2017-11-18] MEDS: ENOXAPARIN SODIUM 40 MG/0.4 ML SYRINGE SQ SCH (11:38)
--- NOTE | 2017-11-18 13:49 | RADRPT ---
EXAM DATE/TIME: 11/18/2017 12:56 [facility] COMPARISON: CHEST SINGLE AP, November 18, 2017, 2:57. INDICATIONS : Possible aspiration. MEDICAL HISTORY : None. SURGICAL HISTORY : None. ENCOUNTER: Initial ACUITY: 4 - 6 days PAIN SCORE: Non-responsive. LOCATION: Bilateral chest FINDINGS: A single portable frontal view of the chest shows an endotracheal tube with the tip 3 cm from the car ed. Nasogastric tube tip courses off the inferior margin of the film. Right subclavian central line. Bibasilar consolidation largely unchanged. No effusions. Heart is normal in size. No pneumothorax. CONCLUSION: Unchanged bibasilar atelectasis versus infiltrates. Adal Krueger Jr., MD on November 18, 2017 at 13:45 Board Certified Radiologist. This report was verified electronically.
[2017-11-18] MEDS: DEXMEDETOMIDINE INJ 200 MCG in SODIUM CHLORIDE 0.9% INJ 50 ML IV PRN ×3 (15:05→23:00)
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
[2017-11-19] VITALS (16 sets, daily range): BP systolic 105–142; BP diastolic 43–70; PULSE 51–100; RESP 14–27; TEMP 98.4–101.1; O2SAT 94–100
[2017-11-19] MEDS: ACETAMINOPHEN 650 MG/20.3 ML UDC PO PRN (01:34)
[2017-11-19] MEDS: DEXMEDETOMIDINE INJ 200 MCG in SODIUM CHLORIDE 0.9% INJ 50 ML IV PRN ×3 (02:15→14:08)
[2017-11-19] MEDS: oxyCODONE HCL ORAL CONC 5 MG/0.25 ML SYRINGE PO SCH ×6 (02:16→23:57)
[2017-11-19] MEDS: RESP: ALBUTEROL 2.5 MG/IPRATROPIUM 0.5 MG NEB (SCH) NEB ×4 (03:56→21:09)
[2017-11-19] MEDS: CHLORHEXIDINE GLUCONATE 2 % 1 PACK (2 CLOTHS) TOP SCH (04:00)
--- NOTE | 2017-11-19 05:06 | RADRPT ---
EXAM DATE/TIME: 11/19/2017 03:40 [facility] COMPARISON: CHEST SINGLE AP, November 18, 2017, 12:56. INDICATIONS : Follow up trauma. Short of breath. MEDICAL HISTORY : None. SURGICAL HISTORY : None. ENCOUNTER: Subsequent ACUITY: 1 week PAIN SCORE: Non-responsive. LOCATION: Bilateral chest FINDINGS: A single AP portable view the chest was obtained and again demonstrates endotracheal tube in place wi th the tip approximately 4 cm above the taco. Nasogastric tube is again seen coursing through the e sophagus and stomach. The right subclavian central venous line remains in place. There are no conflue nt infiltrates effusions. There is mild atelectasis at the left lung base. The bony thorax intact wit h no pneumothorax. CONCLUSION: Mild atelectasis remains in the left lung base. Dick Savage MD on November 19, 2017 at 5:03 Board Certified Radiologist. This report was verified electronically.
[2017-11-19 05:51] LABS: AUTOMATED NEUTROPHIL # 10.8 TH/MM3 (1.8-7.7); BASOPHIL % 0.1 % (0.0-2.0); EOSINOPHIL # 0.6 TH/MM3 (0-0.4); EOSINOPHIL % 4.4 % (0.0-4.0); HEMATOCRIT 30.6 % (39.0-51.0); HEMOGLOBIN 10.5 GM/DL (13.0-17.0); LYMPH % 7.3 % (9.0-44.0); MEAN CELL VOLUME 93.3 FL (80.0-100.0); MEAN CORPUSCULAR HEMOGLOBIN 32.1 PG (27.0-34.0); MEAN CORPUSCULAR HGB CONC 34.4 % (32.0-36.0); MEAN PLATELET VOLUME 6.8 FL (7.0-11.0); MONO % 9.8 % (0.0-8.0); MONOCYTE # 1.4 TH/MM3 (0-0.9); NEUT % 78.4 % (16.0-70.0); PLATELET COUNT 259 TH/MM3 (150-450); RED BLOOD COUNT 3.28 MIL/MM3 (4.50-5.90); RED CELL DISTRIBUTION WIDTH 13.2 % (11.6-17.2); WHITE BLOOD COUNT 13.8 TH/MM3 (4.0-11.0)
[2017-11-19 06:26] LABS: ALBUMIN 2.4 GM/DL (3.4-5.0); ALT (GPT) 33 U/L (12-78); AST (GOT) 16 U/L (15-37); BICARBONATE 28.9 MEQ/L (21.0-32.0); BLOOD UREA NITROGEN 26 MG/DL (7-18); CALCIUM 8.3 MG/DL (8.5-10.1); CHLORIDE 110 MEQ/L (98-107); CREATININE 0.84 MG/DL (0.60-1.30); GLOMERULAR FILTRATION RATE 95 ML/MIN (>89); GLUCOSE,RANDOM 129 MG/DL (74-106); SODIUM (NA) 146 MEQ/L (136-145)
[2017-11-19 06:28] LABS: ALKALINE PHOSPHATASE 62 U/L (45-117); TOTAL BILIRUBIN ADULT 0.5 MG/DL (0.2-1.0); TOTAL PROTEIN 6.2 GM/DL (6.4-8.2)
[2017-11-19] MEDS: MAGNESIUM HYDROXIDE SUSP 30 ML CUP PO SCH ×2 (07:55→20:21)
[2017-11-19] MEDS: LACTULOSE SYRUP 20 GM/30 ML CUP PO SCH (07:56)
[2017-11-19] MEDS: DOCUSATE SODIUM 50 MG/SENNA 8.6 MG TAB PO SCH ×2 (07:59→20:21)
[2017-11-19] MEDS: FAMOTIDINE 20 MG TAB PO SCH ×2 (08:11→20:21)
[2017-11-19] MEDS: ARTIFICIAL TEARS OPTH OINT 3.5 APPLIC/3.5 GM TUBO EACH EYE SCH ×2 (08:11→20:21)
[2017-11-19] MEDS: CHLORHEXIDINE 0.12% (ORAL KIT) 15 ML CUP MT SCH ×2 (08:11→20:15)
[2017-11-19] MEDS: levETIRAcetam INJ 500 MG in SODIUM CHLORIDE 0.9% INJ 100 ML IV SCH ×2 (08:11→20:21)
[2017-11-19] MEDS: SODIUM CHLORIDE 1 GRAM TAB PO SCH ×2 (08:11→20:21)
[2017-11-19] MEDS: ENOXAPARIN SODIUM 40 MG/0.4 ML SYRINGE SQ SCH (11:40)
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
[2017-11-20] VITALS (11 sets, daily range): BP systolic 109–123; BP diastolic 57–88; PULSE 43–116; RESP 15–26; TEMP 98–100; O2SAT 92–100
[2017-11-20] MEDS: oxyCODONE HCL ORAL CONC 5 MG/0.25 ML SYRINGE PO SCH ×6 (03:00→23:00)
[2017-11-20] MEDS: CHLORHEXIDINE GLUCONATE 2 % 1 PACK (2 CLOTHS) TOP SCH (04:00)
[2017-11-20] MEDS: RESP: ALBUTEROL 2.5 MG/IPRATROPIUM 0.5 MG NEB (SCH) NEB (04:00)
[2017-11-20] MEDS: DEXMEDETOMIDINE INJ 200 MCG in SODIUM CHLORIDE 0.9% INJ 50 ML IV PRN ×4 (04:55→09:03)
[2017-11-20] MEDS: MAGNESIUM HYDROXIDE SUSP 30 ML CUP PO SCH ×2 (07:49→22:16)
[2017-11-20] MEDS: LACTULOSE SYRUP 20 GM/30 ML CUP PO SCH (07:49)
[2017-11-20] MEDS: DOCUSATE SODIUM 50 MG/SENNA 8.6 MG TAB PO SCH ×2 (07:50→22:17)
[2017-11-20] MEDS: FAMOTIDINE 20 MG TAB PO SCH ×2 (09:02→22:16)
[2017-11-20] MEDS: levETIRAcetam INJ 500 MG in SODIUM CHLORIDE 0.9% INJ 100 ML IV SCH ×2 (09:02→22:17)
[2017-11-20] MEDS: SODIUM CHLORIDE 1 GRAM TAB PO SCH ×2 (09:03→22:16)
[2017-11-20] MEDS: CHLORHEXIDINE 0.12% (ORAL KIT) 15 ML CUP MT SCH ×2 (09:04→20:00)
[2017-11-20] MEDS: ARTIFICIAL TEARS OPTH OINT 3.5 APPLIC/3.5 GM TUBO EACH EYE SCH ×2 (09:04→22:28)
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
[2017-11-20] MEDS: ENOXAPARIN SODIUM 40 MG/0.4 ML SYRINGE SQ SCH (11:13)
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
[2017-11-20] MEDS: QUEtiapine FUMARATE 25 MG TAB PO SCH ×2 (13:41→22:17)
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
[2017-11-20] MEDS: VALPROIC ACID 250 MG CAP PO SCH ×2 (15:28→22:18)
[2017-11-20] MEDS: ACETAMINOPHEN 650 MG/20.3 ML UDC PO PRN (22:18)
[2017-11-21 00:20] VITALS: BP 117/66; PULSE 88; RESP 18; TEMP 98.1; O2SAT 92
[2017-11-21] MEDS: oxyCODONE HCL ORAL CONC 5 MG/0.25 ML SYRINGE PO SCH ×6 (03:00→23:00)
[2017-11-21] MEDS: CHLORHEXIDINE GLUCONATE 2 % 1 PACK (2 CLOTHS) TOP SCH (04:00)
[2017-11-21] MEDS: QUEtiapine FUMARATE 25 MG TAB PO SCH ×3 (05:18→21:42)
[2017-11-21] MEDS: ACETAMINOPHEN 650 MG/20.3 ML UDC PO PRN ×2 (05:18→21:57)
[2017-11-21 05:45] VITALS: BP 120/67; PULSE 80; RESP 17; TEMP 97.2; O2SAT 93
[2017-11-21 08:30] VITALS: BP 113/55; PULSE 67; RESP 16; TEMP 98.6; O2SAT 94
[2017-11-21] MEDS: ARTIFICIAL TEARS OPTH OINT 3.5 APPLIC/3.5 GM TUBO EACH EYE SCH ×2 (09:00→21:44)
[2017-11-21] MEDS: SODIUM CHLORIDE 1 GRAM TAB PO SCH ×2 (09:00→21:42)
[2017-11-21] MEDS ORDERED: REMOVE OLD DURAGESIC (FENTANYL) PATCH T-DERMAL SCH (11:00)
[2017-11-21] MEDS: levETIRAcetam 500 MG TAB PO SCH ×2 (11:01→21:42)
[2017-11-21] MEDS: DOCUSATE SODIUM 50 MG/SENNA 8.6 MG TAB PO SCH ×2 (11:01→21:42)
[2017-11-21] MEDS: FAMOTIDINE 20 MG TAB PO SCH ×2 (11:01→21:42)
[2017-11-21] MEDS: VALPROIC ACID 250 MG CAP PO SCH ×2 (11:01→21:43)
[2017-11-21] MEDS: ENOXAPARIN SODIUM 40 MG/0.4 ML SYRINGE SQ SCH (11:02)
[2017-11-21] MEDS: MAGNESIUM HYDROXIDE SUSP 30 ML CUP PO SCH ×2 (11:03→21:45)
[2017-11-21] MEDS: LACTULOSE SYRUP 20 GM/30 ML CUP PO SCH (11:03)
[2017-11-21] MEDS: fentaNYL 50 MCG/HR PATCH T-DERMAL SCH (11:05)
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
[2017-11-21 12:09] VITALS: BP 160/77; PULSE 99; RESP 16; TEMP 98.4; O2SAT 94
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
[2017-11-21] MEDS ORDERED: ENALAPRILAT 1.25 MG/ML VIAL IV PUSH PRN (13:15)
[2017-11-21] MEDS ORDERED: diphenhydrAMINE HCL 50 MG/ML VIAL IV PUSH ONE (13:15)
[2017-11-21 17:00] VITALS: BP 136/67; PULSE 82; RESP 19; TEMP 100.2; O2SAT 94
[2017-11-21 20:00] VITALS: BP 136/62; PULSE 75; RESP 19; TEMP 101.7; O2SAT 90
--- NOTE | 2017-11-21 20:19 | PD.OP ---
Operative Report Date of Surgery: Nov 14, 2017 Preoperative Diagnosis: (1) Traumatic epidural hematoma 1. traumatic brain injury 2. Enlarging left anterior middle fossa epidural hematoma Postoperative Diagnosis: (1) Traumatic epidural hematoma 1. traumatic brain injury 2. Enlarging left anterior middle fossa epidural hematoma Procedure: Left frontotemporal craniotomy for evacuation of epidural hematoma Anesthesia: Gen. endotracheal Surgeon: iMngo Palmer Purchasing And Fiscal Clerk(s): Harish San Operation and Findings: Findings: Acute left anterior middle fossa epidural hematoma extending posterior to the petrous ridge. Procedure in detail: The patient was brought into the operating room and general endotracheal anesthesia induced without difficulty. The Adair catheter, and sequential compression devices were in place. The lines were established per anesthesia. The patient was placed in semilateral position on the 3080 table with the head on the horseshoe headrest. All extremities were appropriately padded Appropriate timeout procedure was performed with all personnel present and in agreement The left side of the head was shaved with the clippers and sterilely prepped and draped 1% Xylocaine was used for local infiltration over the incision site which was made over the frontotemporal area in a curvilinear fashion and carried sharply down to the cranium through the temporalis muscle and fascia. The scalp and temporalis muscle flap were elevated in a single layer with the periosteal elevator and retracted r over a laparotomy sponge with the large scalp hooks. The earth moving machine operator was used to place a single bur hole in the posterior left frontotemporal region and the craniotome was used since to incise the bone flap. A moderate size acute epidural hematoma was immediately encountered upon removing the bone flap. This was evacuated with suction and irrigation. The hematoma extended along the anterior middle fossa on the left side to the middle fossa skull base and posterior to the petrous ridge. The laceration of the middle meningeal artery was cauterized with the bipolar forceps. The bipolar forceps were used to control any bleeding at the operative site. The dura was soft and pulsatile at the time of closure. 4-0 Nurolon dural tack up sutures were placed along the edge of the craniotomy site through holes placed with the wire passing drill. A 7 mm flat fluted drain was left in place in the epidural space The drain was brought out through an incision in the posterior frontotemporal region and secured to the skin with nylon suture The closure was performed with 2-0 Vicryl for the temporalis muscle fascia and galeal closure and alexa for the skin closure. A dressing of sterile Telfa, 4 x 4's, and a loose head stockinette was applied. The patient was taken to recovery room in stable condition All counts were correct at the end of the case. Estimated blood loss was 50 cc No specimen was sent to pathology Mingo Palmer MD Nov 21, 2017 20:19
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
[2017-11-22] VITALS (10 sets, daily range): BP systolic 80–140; BP diastolic 60–70; PULSE 62–107; RESP 16–22; TEMP 97.5–101.3; O2SAT 92–94
[2017-11-22] MEDS: oxyCODONE HCL ORAL CONC 5 MG/0.25 ML SYRINGE PO SCH ×6 (03:00→23:00)
[2017-11-22] MEDS: QUEtiapine FUMARATE 25 MG TAB PO SCH ×2 (06:00→13:11)
[2017-11-22] MEDS: LACTULOSE SYRUP 20 GM/30 ML CUP PO SCH (08:47)
[2017-11-22] MEDS: MAGNESIUM HYDROXIDE SUSP 30 ML CUP PO SCH ×2 (08:47→21:00)
[2017-11-22] MEDS: VALPROIC ACID 250 MG CAP PO SCH ×2 (08:48→22:24)
[2017-11-22] MEDS: levETIRAcetam 500 MG TAB PO SCH (08:48)
[2017-11-22] MEDS: FAMOTIDINE 20 MG TAB PO SCH ×2 (08:48→22:24)
[2017-11-22] MEDS: DOCUSATE SODIUM 50 MG/SENNA 8.6 MG TAB PO SCH ×2 (08:48→21:00)
[2017-11-22] MEDS: SODIUM CHLORIDE 1 GRAM TAB PO SCH ×2 (08:48→22:24)
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
[2017-11-22] MEDS: ARTIFICIAL TEARS OPTH OINT 3.5 APPLIC/3.5 GM TUBO EACH EYE SCH (08:54)
[2017-11-22 09:34] LABS: AUTOMATED NEUTROPHIL # 11.6 TH/MM3 (1.8-7.7); BASOPHIL % 0.2 % (0.0-2.0); EOSINOPHIL # 0.9 TH/MM3 (0-0.4); EOSINOPHIL % 5.4 % (0.0-4.0); HEMATOCRIT 31.3 % (39.0-51.0); LYMPH % 19.8 % (9.0-44.0); LYMPHOCYTE # 3.3 TH/MM3 (1.0-4.8); MEAN CELL VOLUME 91.3 FL (80.0-100.0); MEAN PLATELET VOLUME 6.5 FL (7.0-11.0); MONO % 5.9 % (0.0-8.0); NEUT % 68.7 % (16.0-70.0); PLATELET COUNT 379 TH/MM3 (150-450); RED BLOOD COUNT 3.43 MIL/MM3 (4.50-5.90); WHITE BLOOD COUNT 16.8 TH/MM3 (4.0-11.0)
[2017-11-22 09:58] LABS: BICARBONATE 30.1 MEQ/L (21.0-32.0); CALCIUM 8.2 MG/DL (8.5-10.1); CREATININE 0.83 MG/DL (0.60-1.30)
[2017-11-22] MEDS ORDERED: POTASSIUM CHLORIDE 20 MEQ CONTROLLED RELEASE TAB PO ONE (11:00)
[2017-11-22] MEDS: ENOXAPARIN SODIUM 40 MG/0.4 ML SYRINGE SQ SCH (13:08)
[2017-11-22] MEDS: POTASSIUM CHLOR 10 MEQ PREMIX 100 ML IV SCH ×4 (13:11→15:32)
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
--- NOTE | 2017-11-22 14:37 | RADRPT ---
EXAM DATE/TIME: 11/22/2017 13:54 [facility] COMPARISON: CHEST SINGLE AP, November 19, 2017, 3:40. INDICATIONS : Fever, short of breath MEDICAL HISTORY : fever SURGICAL HISTORY : Craniotomy. ENCOUNTER: Subsequent ACUITY: 1 week PAIN SCORE: Non-responsive. LOCATION: Bilateral chest FINDINGS: A single view of the chest demonstrates subsegmental basilar airspace disease. Previous endotracheal tube, nasogastric tube and right central line has been removed. No pneumothorax. CONCLUSION: Subsegmental basilar airspace disease, left greater than right. Findings are stable to slightly impro eh from November 19. No effusion or pneumothorax. Support apparatus has been removed. Benedicto Cali MD on November 22, 2017 at 14:33 Board Certified Radiologist. This report was verified electronically.
[2017-11-22] MEDS ORDERED: HALOPERIDOL LACTATE 5 MG/ML AMP IV PRN (15:00)
[2017-11-22] MEDS: diphenhydrAMINE HCL 25 MG CAP PO SCH ×2 (15:32→22:24)
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
[2017-11-22] MEDS ORDERED: POTASSIUM CHLORIDE 10 MEQ CAP PO ONE (18:00)
[2017-11-22] MEDS ORDERED: POTASSIUM CHLOR 10 MEQ PREMIX 100 ML IV ONE (21:00)
[2017-11-23] VITALS: BP 129/71; PULSE 75; PULSE 78; RESP 22; TEMP 98.2; O2SAT 93
[2017-11-23] MEDS: oxyCODONE HCL ORAL CONC 5 MG/0.25 ML SYRINGE PO SCH ×4 (03:00→23:00)
[2017-11-23] MEDS: diphenhydrAMINE HCL 25 MG CAP PO SCH ×4 (03:30→22:00)
[2017-11-23 04:00] VITALS: BP 129/80; PULSE 67; RESP 18; TEMP 99; O2SAT 93
[2017-11-23] MEDS: ARTIFICIAL TEARS OPTH OINT 3.5 APPLIC/3.5 GM TUBO EACH EYE SCH ×3 (06:34→22:01)
[2017-11-23 08:00] VITALS: BP 131/64; PULSE 61; RESP 18; TEMP 99; O2SAT 95
[2017-11-23] MEDS: DOCUSATE SODIUM 50 MG/SENNA 8.6 MG TAB PO SCH ×2 (09:00→21:00)
[2017-11-23] MEDS: MAGNESIUM HYDROXIDE SUSP 30 ML CUP PO SCH ×2 (09:00→21:00)
[2017-11-23] MEDS: LACTULOSE SYRUP 20 GM/30 ML CUP PO SCH (09:00)
[2017-11-23] MEDS: VALPROIC ACID 250 MG CAP PO SCH ×2 (09:58→22:01)
[2017-11-23] MEDS: SODIUM CHLORIDE 1 GRAM TAB PO SCH ×2 (09:58→22:01)
[2017-11-23] MEDS: FAMOTIDINE 20 MG TAB PO SCH ×2 (09:58→22:01)
[2017-11-23 12:00] VITALS: BP 119/59; PULSE 70; RESP 18; TEMP 100.7; O2SAT 97
[2017-11-23] MEDS: ENOXAPARIN SODIUM 40 MG/0.4 ML SYRINGE SQ SCH ×2 (12:16→13:02)
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
[2017-11-23 14:33] LABS: HEMATOCRIT 32.1 % (39.0-51.0); MEAN CELL VOLUME 92.2 FL (80.0-100.0); MEAN CORPUSCULAR HEMOGLOBIN 31.6 PG (27.0-34.0); MEAN CORPUSCULAR HGB CONC 34.3 % (32.0-36.0); MEAN PLATELET VOLUME 6.4 FL (7.0-11.0); PLATELET COUNT 392 TH/MM3 (150-450); RED BLOOD COUNT 3.48 MIL/MM3 (4.50-5.90); RED CELL DISTRIBUTION WIDTH 13.3 % (11.6-17.2)
[2017-11-23 15:05] LABS: BICARBONATE 30.8 MEQ/L (21.0-32.0); CALCIUM 8.4 MG/DL (8.5-10.1); CREATININE 0.94 MG/DL (0.60-1.30)
[2017-11-23 16:00] VITALS: BP 119/65; PULSE 91; RESP 18; TEMP 101.4; O2SAT 99
[2017-11-23] MEDS ORDERED: POTASSIUM CHLORIDE 25 MEQ EFFERVESCENT TAB PO ONE (16:00)
[2017-11-23] MEDS: SODIUM CHLOR 0.9% 1000 ML INJ 1,000 ML IV SCH (17:45)
[2017-11-23] MEDS: POTASSIUM CHLOR 10 MEQ PREMIX 100 ML IV SCH ×2 (17:45→18:08)
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
[2017-11-23 20:00] VITALS: BP 138/68; PULSE 77; RESP 18; TEMP 98.9; O2SAT 98
[2017-11-24] VITALS: BP 132/82; PULSE 73; RESP 18; TEMP 98.6; O2SAT 98
[2017-11-24] MEDS: POTASSIUM CHLOR 10 MEQ PREMIX 100 ML IV SCH ×4 (01:45→08:09)
[2017-11-24] MEDS: diphenhydrAMINE HCL 25 MG CAP PO SCH ×2 (03:15→08:00)
[2017-11-24] MEDS: oxyCODONE HCL ORAL CONC 5 MG/0.25 ML SYRINGE PO SCH ×2 (03:15→08:09)
[2017-11-24 08:00] VITALS: BP 144/75; PULSE 75; RESP 16; TEMP 100.1; O2SAT 95
[2017-11-24] MEDS: AMANTADINE HCL 100 MG CAP PO SCH ×2 (08:00→12:00)
[2017-11-24] MEDS: FAMOTIDINE 20 MG TAB PO SCH ×2 (09:00→22:16)
[2017-11-24] MEDS: DOCUSATE SODIUM 50 MG/SENNA 8.6 MG TAB PO SCH ×2 (09:00→22:16)
[2017-11-24] MEDS: MAGNESIUM HYDROXIDE SUSP 30 ML CUP PO SCH (09:00)
[2017-11-24] MEDS: ARTIFICIAL TEARS OPTH OINT 3.5 APPLIC/3.5 GM TUBO EACH EYE SCH (09:00)
[2017-11-24] MEDS: SODIUM CHLORIDE 1 GRAM TAB PO SCH ×2 (09:00→22:16)
[2017-11-24] MEDS: LACTULOSE SYRUP 20 GM/30 ML CUP PO SCH (09:00)
[2017-11-24] MEDS: VALPROIC ACID 250 MG CAP PO SCH ×2 (09:00→22:16)
--- NOTE | 2017-11-24 11:23 | RADRPT ---
EXAM DATE/TIME: 11/24/2017 10:43 [place] COMPARISON: CT BRAIN W/O CONTRAST, November 15, 2017, 4:56. INDICATIONS : Evaluate intracerebral hemorrhage RADIATION DOSE: 39.71 CTDIvol (mGy) MEDICAL HISTORY : None SURGICAL HISTORY : Craniotomy. ENCOUNTER: Subsequent ACUITY: 2 weeks PAIN SCALE: 3/10 LOCATION: Bilateral cranial TECHNIQUE: Multiple contiguous axial images were obtained of the head. Using automated exposure control and adj ustment of the mA and/or kV according to patient size, radiation dose was kept as low as reasonably a chievable to obtain optimal diagnostic quality images. DICOM format image data is available electro nically for review and comparison. FINDINGS: Today's exam is compared to the prior study of 11/15/2017. There appears to be some improvement with t he intraventricular and sub-arachnoid hemorrhage. Continues to be a small left subdural hematoma with approximately 5 mm of separation in the left temporal region.. The ventricles remain normal in size. There continues to be some very mild midline shift to the right by 3 mm. No new areas of hemorrhage are demonstrated. There is a subdural hygroma overlying the left frontoparietal lobe with 8 mm of sep aration. The posterior fossa is stable and unremarkable. CONCLUSION: 1. There's been improvement with the intraventricular and subarachnoid hemorrhage compared to the kae or exam. 2. Stable small left subdural hematoma with approximately 5 mm of separation in the left temporal reg ion. 3. Subdural hygroma along the left frontal parietal region with 8 mm of separation. 4. Mild midline shift to the right by approximately 3 mm. Kwaku Jaimes MD on November 24, 2017 at 11:17 Board Certified Radiologist. This report was verified electronically.
[2017-11-24 12:00] VITALS: BP 140/81; PULSE 85; RESP 16; TEMP 100.2; O2SAT 96
[2017-11-24] MEDS ORDERED: oxyCODONE HCL ORAL CONC 5 MG/0.25 ML SYRINGE PO SCH (12:00)
[2017-11-24] MEDS: ENOXAPARIN SODIUM 40 MG/0.4 ML SYRINGE SQ SCH (12:05)
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
[2017-11-24] MEDS ORDERED: ARTIFICIAL TEARS OPTH OINT 3.5 APPLIC/3.5 GM TUBO EACH EYE PRN (15:00)
[2017-11-24 15:02] LABS: BICARBONATE 31.3 MEQ/L (21.0-32.0); CALCIUM 8.4 MG/DL (8.5-10.1); CREATININE 0.86 MG/DL (0.60-1.30); MAGNESIUM 2.3 MG/DL (1.5-2.5)
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
[2017-11-24 16:00] VITALS: BP 116/69; PULSE 77; RESP 16; TEMP 99; O2SAT 99
[2017-11-24] MEDS: POTASSIUM CHLORIDE 20 MEQ CONTROLLED RELEASE TAB PO SCH (17:00)
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
[2017-11-24 20:00] VITALS: BP 112/58; PULSE 84; RESP 18; TEMP 98.7; O2SAT 95
[2017-11-24] MEDS: SODIUM CHLOR 0.9% 1000 ML INJ 1,000 ML IV SCH (22:15)
[2017-11-24 22:39] LABS: BILIRUBIN, URINE NEG (NEG); BLOOD, URINE NEG (NEG); GLUCOSE,URINE NEG (NEG); KETONE, URINE NEG (NEG); NITRITE,URINE NEG (NEG); PH, URINE 7.5 (5.0-8.5); URINE COLOR LIGHT-YELLOW (YELLW/STRAW); URINE LEUKOCYTE ESTERASE NEG (NEG)
[2017-11-25] VITALS: BP 118/80; PULSE 86; RESP 18; TEMP 98.3; O2SAT 96
[2017-11-25] MEDS: ACETAMINOPHEN 650 MG/20.3 ML UDC PO PRN (03:49)
[2017-11-25 04:00] VITALS: BP 118/80; PULSE 86; RESP 16; RESP 18; TEMP 97.3; TEMP 98.3; O2SAT 96
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
[2017-11-25 08:00] VITALS: BP 113/67; PULSE 59; RESP 18; TEMP 98.2; O2SAT 97
[2017-11-25] MEDS: AMANTADINE HCL 100 MG CAP PO SCH ×2 (08:00→12:00)
[2017-11-25 08:07] LABS: AUTOMATED NEUTROPHIL # 8.6 TH/MM3 (1.8-7.7); BASOPHIL # 0.2 TH/MM3 (0-0.2); BASOPHIL % 1.1 % (0.0-2.0); EOSINOPHIL # 1.5 TH/MM3 (0-0.4); EOSINOPHIL % 10.1 % (0.0-4.0); HEMATOCRIT 29.7 % (39.0-51.0); HEMOGLOBIN 10.4 GM/DL (13.0-17.0); LYMPH % 24.7 % (9.0-44.0); LYMPHOCYTE # 3.6 TH/MM3 (1.0-4.8); MEAN CELL VOLUME 91.9 FL (80.0-100.0); MEAN CORPUSCULAR HGB CONC 34.8 % (32.0-36.0); MEAN PLATELET VOLUME 6.4 FL (7.0-11.0); MONO % 5.3 % (0.0-8.0); MONOCYTE # 0.8 TH/MM3 (0-0.9); NEUT % 58.8 % (16.0-70.0); PLATELET COUNT 380 TH/MM3 (150-450); RED BLOOD COUNT 3.23 MIL/MM3 (4.50-5.90); RED CELL DISTRIBUTION WIDTH 13.4 % (11.6-17.2); WHITE BLOOD COUNT 14.6 TH/MM3 (4.0-11.0)
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
[2017-11-25 08:41] LABS: BICARBONATE 28.9 MEQ/L (21.0-32.0); CALCIUM 8.5 MG/DL (8.5-10.1); CREATININE 0.84 MG/DL (0.60-1.30)
--- NOTE | 2017-11-25 10:28 | RADRPT ---
EXAM DATE/TIME: 11/25/2017 09:28 [facility] COMPARISON: No previous studies available for comparison. INDICATIONS : Bilateral leg swelling. MEDICAL HISTORY : Bilateral leg swelling. Bilateral arm swelling. SURGICAL HISTORY : None. ENCOUNTER: Initial ACUITY: 1 day PAIN SCORE: 0/10 LOCATION: Bilateral leg. TECHNIQUE: Venous ultrasound of the left and right leg was performed from the inguinal ligament to the proximal calf. Real-time, color Doppler and spectral tracing, compression and augmentation techniques were us ed. FINDINGS: RIGHT LEG: There is normal compressibility of the deep venous system from the inguinal region to the proximal ca lf. No echogenic clot is seen in the lumen of the common femoral, femoral, popliteal, and posterior tibial veins. There is a normal response of the venous system to proximal and distal augmentation an d respiration. LEFT LEG: There is normal compressibility of the deep venous system from the inguinal region to the proximal ca lf. No echogenic clot is seen in the lumen of the common femoral, femoral, popliteal, and posterior tibial veins. There is a normal response of the venous system to proximal and distal augmentation an d respiration. CONCLUSION: Negative exam with no evidence of deep venous thrombosis. Dick Savage MD on November 25, 2017 at 10:26 Board Certified Radiologist. This report was verified electronically.
[2017-11-25] MEDS: FAMOTIDINE 20 MG TAB PO SCH ×2 (10:38→21:45)
[2017-11-25] MEDS: SODIUM CHLORIDE 1 GRAM TAB PO SCH ×2 (10:38→21:45)
[2017-11-25] MEDS: VALPROIC ACID 250 MG CAP PO SCH ×2 (10:38→21:46)
[2017-11-25] MEDS: POTASSIUM CHLORIDE 20 MEQ CONTROLLED RELEASE TAB PO SCH (10:38)
[2017-11-25] MEDS: DOCUSATE SODIUM 50 MG/SENNA 8.6 MG TAB PO SCH ×2 (10:39→21:46)
--- NOTE | 2017-11-25 10:39 | RADRPT ---
EXAM DATE/TIME: 11/25/2017 08:47 [facility] COMPARISON: No previous studies available for comparison. INDICATIONS : Bilateral arm swelling. MEDICAL HISTORY : Bilateral arm swelling. Bilateral leg swelling. SURGICAL HISTORY : None. ENCOUNTER: Initial ACUITY: 1 day PAIN SCORE: 0/10 LOCATION: Bilateral arm. FINDINGS: RIGHT UPPER EXTREMITY: There is spontaneous flow documented in the brachial, cephalic, axillary, and subclavian veins. There is occlusive thrombus in the right basilic vein in the mid to distal portions. The vessels are compr essible and augmentation response is documented. No filling defects are seen. The flow is phasic wi th respiration. Direction of flow in the jugular vein is caudal. LEFT UPPER EXTREMITY: There is spontaneous flow documented in the brachial, basilic, cephalic, axillary, and subclavian vei ns. The vessels are compressible and augmentation response is documented. No filling defects are se en. The flow is phasic with respiration. Direction of flow in the jugular vein is caudal. CONCLUSION: 1. The left upper extremity ultrasound is unremarkable with no evidence of thrombus. 2. Occlusive thrombus in the right basilic vein. The deep venous system is patent. Dick Savage MD on November 25, 2017 at 10:34 Board Certified Radiologist. This report was verified electronically.
[2017-11-25] MEDS: ENOXAPARIN SODIUM 40 MG/0.4 ML SYRINGE SQ SCH (11:00)
[2017-11-25 12:00] VITALS: BP 112/60; PULSE 70; RESP 18; TEMP 97.7; O2SAT 97
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
[2017-11-25] MEDS ORDERED: VALP250 PO (14:14)
[2017-11-25] MEDS ORDERED: Amantadine PO (14:14)
[2017-11-25] MEDS ORDERED: OXYC-392 PO (14:14)
[2017-11-25] MEDS ORDERED: POTA20TA5 PO (14:14)
[2017-11-25] MEDS ORDERED: PERI PO (14:14)
[2017-11-25] MEDS ORDERED: SODI1TAB PO (14:14)
[2017-11-25] MEDS ORDERED: ENOX40P SQ (14:14)
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
[2017-11-25 16:00] VITALS: BP 127/71; PULSE 87; RESP 18; TEMP 98.3; O2SAT 98
[2017-11-25 20:00] VITALS: BP 117/72; PULSE 18; RESP 18; TEMP 97.7; O2SAT 95
[2017-11-26] VITALS: BP 125/65; PULSE 83; RESP 16; TEMP 98.6; O2SAT 95
[2017-11-26] MEDS: SODIUM CHLOR 0.9% 1000 ML INJ 1,000 ML IV SCH (01:59)
[2017-11-26 04:00] VITALS: BP 140/62; PULSE 57; RESP 16; TEMP 97.5; O2SAT 96
[2017-11-26 08:00] VITALS: BP 122/70; PULSE 57; RESP 18; TEMP 98; O2SAT 99
[2017-11-26] MEDS: AMANTADINE HCL 100 MG CAP PO SCH ×2 (09:45→12:17)
[2017-11-26] MEDS: ENOXAPARIN SODIUM 40 MG/0.4 ML SYRINGE SQ SCH (09:46)
[2017-11-26] MEDS: DOCUSATE SODIUM 50 MG/SENNA 8.6 MG TAB PO SCH (09:46)
[2017-11-26] MEDS: VALPROIC ACID 250 MG CAP PO SCH (09:46)
[2017-11-26] MEDS: FAMOTIDINE 20 MG TAB PO SCH (09:46)
[2017-11-26] MEDS: SODIUM CHLORIDE 1 GRAM TAB PO SCH (09:46)
[2017-11-26] MEDS: POTASSIUM CHLORIDE 20 MEQ CONTROLLED RELEASE TAB PO SCH (09:46)
[2017-11-26 12:00] VITALS: BP 117/75; PULSE 71; RESP 18; TEMP 98.2; O2SAT 96
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
== END 2017-11-26 13:17 | DRG 25 ==
LOC: NEPI 19:38 → EDBD 20:12 → NEDA 20:12 → N03B 20:29 → N05A 11-20 14:14
PROVIDERS: ADMIT Surgery Trauma Surgery; ATTEND Surgery Trauma Surgery
PROC: 05H533Z Insertion of Infusion Device into Right Subclavian Vein, Percutaneous Approach (ICD-10-PCS; 2017-11-12)
PROC: 0BH17EZ Insertion of Endotracheal Airway into Trachea, Via Natural or Artificial Opening (ICD-10-PCS; 2017-11-12)
PROC: 5A1955Z Respiratory Ventilation, Greater than 96 Consecutive Hours (ICD-10-PCS; 2017-11-12)
PROC: 00H032Z Insertion of Monitoring Device into Brain, Percutaneous Approach (ICD-10-PCS; 2017-11-12)
PROC: 00C30ZZ Extirpation of Matter from Intracranial Epidural Space, Open Approach (ICD-10-PCS; principal; 2017-11-14 14:22)
PROC: 0XQCXZZ Repair Left Elbow Region, External Approach (ICD-10-PCS; 2017-11-17)
DX: S06.5X9A Traumatic subdural hemorrhage with loss of consciousness of unspecified duration, initial encounter (principal); J96.90 Respiratory failure, unspecified, unspecified whether with hypoxia or hypercapnia; I82.611 Acute embolism and thrombosis of superficial veins of right upper extremity; R47.01 Aphasia; S02.32XA Fracture of orbital floor, left side, initial encounter for closed fracture; D69.6 Thrombocytopenia, unspecified; S02.40DA Maxillary fracture, left side, initial encounter for closed fracture; S42.192A Fracture of other part of scapula, left shoulder, initial encounter for closed fracture; F02.80 Dementia in other diseases classified elsewhere, unspecified severity, without behavioral disturbance, psychotic disturbance, mood disturbance, and anxiety; D64.9 Anemia, unspecified; S06.6X9A Traumatic subarachnoid hemorrhage with loss of consciousness of unspecified duration, initial encounter; R40.2352 Coma scale, best motor response, localizes pain, at arrival to emergency department; S02.19XA Other fracture of base of skull, initial encounter for closed fracture; S02.0XXA Fracture of vault of skull, initial encounter for closed fracture; R40.2112 Coma scale, eyes open, never, at arrival to emergency department; R40.2212 Coma scale, best verbal response, none, at arrival to emergency department; S06.4X9A Epidural hemorrhage with loss of consciousness of unspecified duration, initial encounter; S51.012A Laceration without foreign body of left elbow, initial encounter; R50.9 Fever, unspecified; E87.6 Hypokalemia; H53.2 Diplopia; R00.1 Bradycardia, unspecified; R21 Rash and other nonspecific skin eruption; Y92.410 Unspecified street and highway as the place of occurrence of the external cause; V29.9XXA Motorcycle rider (driver) (passenger) injured in unspecified traffic accident, initial encounter
CPT/HCPCS: 31500; 36556; 36600; 61210; 70450; 70486; 71045; 71260; 72125; 72129; 72132; 72170; 73130; 73630; 74177; 80048; 80053; 80307; 81001; 82805; 83735; 83930; 84100; 84132; 84145; 84295; 85025; 85027; 85610; 85730; 86850; 86900; 86901; 87040; 87077; 87086; 87186; 87641; 90471; 90715; 93005; 93970; 94002; 94003; 94150; 94640; 94664; 94667; 94668; 94770; 96361; 96374; 99291; G0390; J0690; J1200; J1580; J1650; J1940; J1953; J2150; J3010; J3480; J7030; J7050; Q9967